=== PATIENT | female | born 1930 | race Caucasian/White ===

== ENCOUNTER 2017-11-28 14:14 | Emergency (ER) | payer OTHER ==
[~2017-11-28] VITALS: Ht 157.5 cm; Wt 86.1 kg
[2017-11-28] MEDS ORDERED: ASPIRIN81 M2 PO (14:26)
[2017-11-28] MEDS ORDERED: NORTRIPTYLINE H10 MG PO (14:26)
[2017-11-28] MEDS ORDERED: QUINAPRIL HCL20 MG PO (14:27)
[2017-11-28] MEDS ORDERED: PLAVIX75 MG PO (14:27)
[2017-11-28] MEDS ORDERED: CARVEDILOL6.25 MG PO (14:28)
[2017-11-28] MEDS ORDERED: FELODIPINE ER5 MG PO (14:29)
[2017-11-28] MEDS ORDERED: COSOPT EYE DROP10 ML BOTH EYES (14:30)
[2017-11-28] MEDS ORDERED: VITAMIN D32000 UNI1 PO (14:32)
[2017-11-28 16:45] VITALS: BP 138/79
== END 2017-11-28 16:45 | disposition home or self-care (01) ==
LOC: EME 14:14
DX: S60.212A Contusion of left wrist, initial encounter (principal); S63.502A Unspecified sprain of left wrist, initial encounter; W22.09XA Striking against other stationary object, initial encounter; M32.9 Systemic lupus erythematosus, unspecified; I10 Essential (primary) hypertension; E78.5 Hyperlipidemia, unspecified; Z79.02 Long term (current) use of antithrombotics/antiplatelets; Z95.5 Presence of coronary angioplasty implant and graft; Z88.0 Allergy status to penicillin
CPT/HCPCS: 73110